=== PATIENT | female | born 1995 | race African-American/Black ===

== ENCOUNTER 2016-02-23 06:57 | Emergency (ER) | payer SELFPAY ==
[2016-02-23] MEDS ORDERED: ONDANSETRON 4 MG VIAL ONE ×2 (07:19→10:13)
[2016-02-23] MEDS ORDERED: LIDOCAINE 2% VISC 15 ML UDC ONE (07:20)
[2016-02-23] MEDS ORDERED: ALU/MAG/SIM 30 ML UDC ONE (07:20)
[2016-02-23] MEDS ORDERED: DUONEB INH ONE (07:22)
[2016-02-23] MEDS ORDERED: MORPHINE 4 MG/ML SYR ONE (08:15)
[2016-02-23] MEDS ORDERED: SODIUM CHLORIDE 0.9% 100 ML IV ONE (09:00)
[2016-02-23] MEDS ORDERED: CEFTRIAXONE 1 GM VIAL ONE (09:00)
[2016-02-23] MEDS ORDERED: SODIUM CHLORIDE 0.9% 1,000 ML ONE (10:13)
== END 2016-02-23 11:34 | disposition home or self-care (01) ==
LOC: ER 06:57
DX: R10.13 Epigastric pain (principal); R07.89 Other chest pain; K21.0 Gastro-esophageal reflux disease with esophagitis; J45.901 Unspecified asthma with (acute) exacerbation; N30.00 Acute cystitis without hematuria; F12.10 Cannabis abuse, uncomplicated
CPT/HCPCS: 36415; 74022; 76705; 80053; 81001; 82553; 83690; 84484; 84703; 85025; 85379; 87088; 94640; 96361; 96365; 96375; 96376